=== PATIENT | male | born 1960 | race Hispanic/Latino ===

== ENCOUNTER 2019-04-28 11:41 | Emergency (ER) | payer OTHER ==
[2019-04-28] MEDS ORDERED: ONDANSETRON HCL 4 MG/2 ML VIAL ONE (12:58)
[2019-04-28] MEDS ORDERED: MORPHINE SULFATE 4 MG/1ML SYG ONE (12:58)
[2019-04-28] MEDS ORDERED: KETOROLAC TROMETHAMINE 30MG/ML ONE (12:58)
== END 2019-04-28 14:25 | disposition home or self-care (01) ==
LOC: EDH 11:41
DX: S42.295A Other nondisplaced fracture of upper end of left humerus, initial encounter for closed fracture (principal); S00.83XA Contusion of other part of head, initial encounter; M54.2 Cervicalgia; E11.9 Type 2 diabetes mellitus without complications; I10 Essential (primary) hypertension; E78.00 Pure hypercholesterolemia, unspecified; W18.39XA Other fall on same level, initial encounter; Y93.01 Activity, walking, marching and hiking; Y92.89 Other specified places as the place of occurrence of the external cause; Y99.8 Other external cause status
CPT/HCPCS: 70450; 72125; 73030; 73070; 96374; 96375; 99285; J1885; J2270; J2405